=== PATIENT | female | born 1975 | race Caucasian/White ===

== ENCOUNTER 2021-01-07 00:03 | Observation (INO) | payer OTHER, SELFPAY ==
[2021-01-07] VITALS (21 sets, daily range): BP systolic 104–137; BP diastolic 56–86; PULSE 85–109; RESP 12–20; TEMP 36.6–37.7; O2SAT 93–97; BMI 50.1
--- NOTE | 2021-01-07 | PATH_ITS ---
[facility] Accession Number: [id number] . 01 Material submitted: . appendix - APPENDIX . 02 Diagnosis: Appendix, Appendectomy: Acute appendicitis with serositis. No evidence of neoplasm. MRV 01/09/2021 1202 Local . 02 Electronically signed: . Zack Bolanos MD, PhD, Pathologist NPI- [id number] . 01 Gross description: . The specimen is received in formalin, labeled appendix and consists of a 4.0 cm in length by 1.0 cm in diameter vermiform appendix with attached cary-yellow lobulated mesoappendix measuring 4.8 x 1.2 x 1.0 cm. The serosa is cary-pink and dull with fibrinous adhesions and adherent purulent exudate. Sectioning reveals a cary-pink mucosa and a lumen measuring 0.6 cm in diameter, which contains brown fecal material. Manager Pet sections are submitted, to include the en face margin (blue), central cross-sections and bisected tips, in cassette A1. ([id number]) /MRV 01/08/2021 1249 Local . 02 Pathologist provided ICD-10: K35.80 . 02 CPT . 287492 Performed at: 01 [facility] [address], [place], [place] [id number] MD Lio Munoz MD Phone: [phone] Performed at: 02 [facility] [address] [place], [place] [id number] MD Alana Kendall MD Phone: [phone]
[2021-01-07 00:58] LABS: Alanine Aminotransferase 28 IU/L (<35); Albumin 4.2 g/dL (3.5-5.0); Albumin Globulin Ratio 1.6 (1.0-2.8); Alkaline Phosphatase 64 U/L (38-126); Aspartate Aminotransferase 21 IU/L (14-36); Bilirubin Total 0.5 mg/dL (0.2-1.3); Blood Urea Nitrogen 9 mg/dL (7-17); Calcium 9.1 mg/dL (8.4-10.2); Carbon Dioxide 24 mmol/L (22-32); Chloride 101 mmol/L (98-107); Estimated Glomerular Filt Rate > 60.0 mL/min (>60); Globulin 2.7 g/dL (1.7-4.1); Glucose 172 mg/dL (70-100); HEMOLYSIS < 15 (0-50); Lipase 39 U/L (23-300); Potassium 4.4 mmol/L (3.4-5.1); Sodium 131 mmol/L (137-145); Total Protein 6.9 g/dL (6.3-8.2)
[2021-01-07 01:05] LABS: Add Manual Diff / Slide Review NO; Basophils Absolute Auto 100 /uL (0-100); Basophils Percent Auto 0.3 % (0-2); Eosinophils Absolute Auto 100 /uL (0-450); Eosinophils Percent Auto 0.5 % (2-4); Hematocrit 40.1 % (36-46); Hemoglobin 13.4 g/dL (12.0-16.0); Lymphocytes Absolute Auto 600 /uL (1100-4500); Lymphocytes Percent Auto 3.3 % (25-40); Mean Corpuscular HGB Conc 33.3 % (30-36); Mean Corpuscular Hemoglobin 29.2 PG (26-34); Mean Corpuscular Volume 87.7 fL (80-100); Monocytes Absolute Auto 1000 /uL (0-900); Monocytes Percent Auto 5.3 % (3-14); Neutrophils Absolute Auto 16600 /uL (1500-7000); Neutrophils Percent Auto 90.6 % (50-75); Platelet Count 182 X10^3/uL (150-400); Red Blood Cell Count 4.58 X10^6/uL (4.0-5.2); Red Cell Distribution Width 13.3 % (11.6-14.8); White Blood Cell Count 18.4 X10^3/uL (4.5-11.0)
[2021-01-07 01:25] LABS: COVID19 -Nasal RAPID Negative (Negative)
--- NOTE | 2021-01-07 01:30 | DI.CT.S_ITS ---
PROCEDURE: CT ABDOMEN PELVIS W CON INDICATIONS: right lower quadrant pain TECHNIQUE: After the administration of intravenous contrast, axial sections acquired from the lung bases to the pubic symphysis. Coronal and sagittal reformats were performed. For radiation dose reduction, the following was used: automated exposure control, adjustment of mA and/or kV according to patient size. COMPARISON: None. FINDINGS: Image quality: Excellent. Lung bases: Unremarkable. Heart: No significant findings. ABDOMEN: Liver: Diffuse hepatic steatosis. No masses. Gallbladder: Unremarkable. Biliary ducts: Unremarkable. Pancreas: Unremarkable. Spleen: Unremarkable. Adrenal Glands: Unremarkable. Kidneys and Ureters: Unremarkable. Stomach and Bowel: The appendix is dilated and fluid filled with a o'clock of base of the appendix were present cecum. There is mild inflammatory stranding in the adjacent fat. Findings are consistent with acute appendicitis. Bowel is otherwise unremarkable. Appendix measures up to 1.4 cm in diameter. Peritoneum: No abnormal intraperitoneal fluid. No free air. Ventral Wall: No hernias. Abdominal Nodes: No retroperitoneal or mesenteric adenopathy by size criteria. Vessels: Aorta and inferior vena cava are normal in size. PELVIS: Pelvic Organs: Unremarkable. Bladder: Unremarkable. Pelvic Nodes: No enlarged lymph nodes. Miscellaneous: No hernias are seen. Bones: Unremarkable. IMPRESSION: 1. Acute nonruptured appendicitis. Comment: Final report is concordant with preliminary interpretation provided by [facility]. Dictated by: Luis Daniel Kramer M.D. on 01/07/2021 at 7:55 Approved by: Luis Daniel Kramer M.D. on 01/07/2021 at 8:00
--- NOTE | 2021-01-07 01:34 | ED.ABDPAIN ---
HPI - Abdominal Pain General Chief Complaint: Abdominal Pain Stated Complaint: diarrhea, swollen stomach/hot lots of pain Time Seen by Provider: 01/07/21 01:22 Source: patient and family Mode of arrival: Ambulatory Limitations: no limitations History of Present Illness HPI narrative: With . Onset 10:00 a.m. yesterday with right lower quadrant pain with nausea diarrhea abdominal pain and fever. No urinary complaints. Radiates to the back. Still has her appendix. Still has her gallbladder. No chest pain. No recent cough cold congestion. Related Data Home Medications Medication Instructions Recorded Confirmed levothyroxine 112 mcg capsule 112 mcg PO DAILY 11/16/17 01/07/21 Previous Rx's Medication Instructions Recorded ketorolac 10 mg tablet 10 mg PO QID PRN #10 tab 01/08/21 Allergies Allergy/AdvReac Type Severity Reaction Status Date / Time morphine Allergy Mild ITCHING Verified 01/07/21 10:10 penicillin G Allergy Mild Hives Verified 01/07/21 10:10 oxycodone AdvReac Mild INTOLERANT Verified 01/07/21 10:10 TO PERCOCET Review of Systems Review of Systems Narrative: GENERAL: Complains chills, fatigue, malaise, fever, sweats. HEENT: Denies sinus pain, ear pain, sore throat RESPIRATORY: Denies dyspnea, cough CARDIOVASCULAR: Denies chest pain, palpitations GASTROINTESTINAL: Complain nausea, denies vomiting, complaint abdominal pain : Denies dysuria, frequency, hematuria MUSCULOSKELETAL: denies muscle or bony pain SKIN: Denies rash, skin lesions NEUROLOGIC: Denies weakness, numbness Patient History Medical History Hypothyroidism Surgical History History of third molar tooth extraction Status post delivery Social History household members: spouse, family and children Smoking Status: Never smoker alcohol intake: never Smoking Status: Never smoker Substance Use Type: does not use Exam Narrative Exam Narrative: GENERAL: in no distress, not toxic not dyspneic HEAD: Normocephalic. EYES: Pupils equal round No scleral icterus. No injection no discharge ENT: Mucous membranes moist. NECK: Trachea midline. CARDIOVASCULAR: Regular rate and rhythm without murmurs RESPIRATORY: Clear to auscultation. Breath sounds equal bilaterally. No wheezes, rales, or rhonchi. GASTROINTESTINAL: Abdomen soft, tender to touch diffusely lower quadrant of the abdomen, mild right lower back tenderness EXTREMITIES: No gross deformities. BACK: No flank tenderness. NEURO: AOx4. Slow steady gait in hallway from bathroom back to her room. SKIN: Warm and dry PSYCH: Not anxious, is cooperative Initial Vital Signs Initial Vital Signs: Vital Signs Temperature 98.4 F 01/07/21 00:26 Pulse Rate 109 H 01/07/21 00:26 Respiratory Rate 20 01/07/21 00:26 Blood Pressure 137/86 01/07/21 00:26 Pulse Oximetry 96 01/07/21 00:26 Course Course Course Narrative: No new issues during course of stay Orders Ordered: Discontinued Medications Acetaminophen (Acetaminophen 325 Mg Tablet) 975 mg PO NOW ONE Stop: 01/07/21 01:31 Last Admin: 01/07/21 01:46 Dose: 975 mg Documented by: HERSON Acetaminophen (Acetaminophen 325 Mg Tablet) 650 mg PO Q6HR PRN PRN Reason: Fever/Mild Pain (1-3) Last Admin: 01/07/21 18:28 Dose: 650 mg Documented by: Admin: 01/07/21 07:23 Dose: 650 mg Documented by: PRESLEY Bupivacaine HCl (Bupivacaine 0.25% (Pf) Vial) 30 ml INJ NOW ONE Stop: 01/07/21 16:58 Last Admin: 01/07/21 16:57 Dose: 30 ml Documented by: TAMMY Fentanyl (Fentanyl 100 Mcg/2 Ml Inj) 0 mcg IV Q5MIN PRN PRN Reason: Pain, Severe (7-10) Gabapentin (Gabapentin 300 Mg Capsule) 300 mg PO BID TEETEE Last Admin: 01/08/21 09:38 Dose: 300 mg Documented by: Admin: 01/08/21 08:50 Dose: Not Given Documented by: Admin: 01/07/21 21:17 Dose: 300 mg Documented by: DUSTY Hydromorphone HCl (Hydromorphone 2 Mg Inj) 0 mg IV Q5MIN PRN PRN Reason: Pain, Mild (1-3) Hydromorphone HCl (Hydromorphone 2 Mg Tablet) 2 mg PO Q4HR PRN PRN Reason: Pain, Severe (7-10) Sodium Chloride (Normal Saline 0.9%) 1,000 mls @ 1,000 mls/hr IV BOLUS ONE Stop: 01/07/21 02:29 Last Infusion: 01/07/21 02:52 Dose: 0 mls/hr Documented by: Admin: 01/07/21 01:47 Dose: 1,000 mls/hr Documented by: HERSON Metronidazole (Flagyl) 500 mg in 100 mls @ 100 mls/hr IV NOW ONE Stop: 01/07/21 03:23 Last Infusion: 01/07/21 04:30 Dose: 0 mls/hr Documented by: Admin: 01/07/21 03:26 Dose: 100 mls/hr Documented by: HERSON Ceftriaxone Sodium 2,000 mg/ (Sodium Chloride) 100 mls @ 200 mls/hr IV NOW ONE Stop: 01/07/21 02:25 Last Infusion: 01/07/21 03:26 Dose: 0 mls/hr Documented by: Admin: 01/07/21 02:52 Dose: 200 mls/hr Documented by: ELYSE Lactated Ringer's (Lactated Ringers) 1,000 mls @ 150 mls/hr IV CONT TEETEE Last Infusion: 01/07/21 22:43 Dose: 42 mls/hr Documented by: Infusion: 01/07/21 11:55 Dose: 150 mls/hr Documented by: Admin: 01/07/21 10:27 Dose: 100 mls/hr Documented by: Infusion: 01/07/21 07:50 Dose: 0 mls/hr Documented by: Admin: 01/07/21 04:29 Dose: 100 mls/hr Documented by: ELYSE Lactated Ringer's (Lactated Ringers) 1,000 mls @ 42 mls/hr IV CONT TEETEE Last Admin: 01/07/21 10:35 Dose: Not Given Documented by: RALF Lactated Ringer's (Lactated Ringers) 1,000 mls @ 42 mls/hr IV CONT TEETEE Metronidazole (Flagyl) 500 mg in 100 mls @ 100 mls/hr IV NOW ONE Stop: 01/07/21 12:29 Last Infusion: 01/07/21 15:20 Dose: 0 mls/hr Documented by: Admin: 01/07/21 12:03 Dose: 100 mls/hr Documented by: RALF Metronidazole (Flagyl) 500 mg in 100 mls @ 100 mls/hr IV INTRA-OP ONE Stop: 01/07/21 18:59 Last Infusion: 01/07/21 16:49 Dose: 0 mls/hr Documented by: Admin: 01/07/21 16:44 Dose: 100 mls/hr Documented by: KEI Cefotetan Disodium 2 gm/ (Sodium Chloride) 100 mls @ 200 mls/hr IV INTRA-OP ONE Stop: 01/07/21 18:29 Last Infusion: 01/07/21 16:58 Dose: 0 mls/hr Documented by: Admin: 01/07/21 16:49 Dose: 200 mls/hr Documented by: KEI Lactated Ringer's (Lactated Ringers) 1,000 mls @ 42 mls/hr IV CONT TEETEE Last Infusion: 01/08/21 07:01 Dose: 0 mls/hr Documented by: Admin: 01/08/21 03:49 Dose: 42 mls/hr Documented by: Infusion: 01/07/21 18:52 Dose: 0 mls/hr Documented by: Admin: 01/07/21 15:56 Dose: 42 mls/hr Documented by: QUINN Lactated Ringer's (Lactated Ringers) 1,000 mls @ 120 mls/hr IV CONT TEETEE Last Admin: 01/07/21 21:07 Dose: Not Given Documented by: DUSTY Ketorolac Tromethamine (Ketorolac 30 Mg/Ml Vial) 15 mg IV NOW ONE Stop: 01/07/21 01:35 Last Admin: 01/07/21 01:46 Dose: 15 mg Documented by: HERSON Ketorolac Tromethamine (Ketorolac 30 Mg/Ml Vial) 30 mg IV NOW ONE Stop: 01/07/21 07:34 Last Admin: 01/07/21 07:43 Dose: 30 mg Documented by: PRESLEY Ketorolac Tromethamine (Ketorolac 30 Mg/Ml Vial) 30 mg IV NOW ONE Stop: 01/07/21 14:31 Last Admin: 01/07/21 14:34 Dose: 30 mg Documented by: RALF Ketorolac Tromethamine (Ketorolac 10 Mg Tablet) 10 mg PO NOW ONE Stop: 01/08/21 10:18 Last Admin: 01/08/21 10:42 Dose: 10 mg Documented by: RALF Levothyroxine Sodium (Levothyroxine 112 Mcg Tablet) 112 mcg PO 0600 TEETEE Last Admin: 01/08/21 06:21 Dose: 112 mcg Documented by: OLENA Meperidine HCl (Meperidine 50 Mg/Ml Inj) 12.5 mg IV PACUNOW PRN PRN Reason: Mild pain or shivering Naloxone HCl (Naloxone 0.4 Mg/Ml Vial) 0.2 mg IV Q2MIN PRN PRN Reason: Opiate Reversal Ondansetron HCl (Ondansetron 4 Mg/2 Ml Inj) 4 mg IV NOW ONE Stop: 01/07/21 01:31 Last Admin: 01/07/21 01:46 Dose: 4 mg Documented by: HERSON Ondansetron HCl (Ondansetron 4 Mg/2 Ml Inj) 4 mg IV Q4HR PRN PRN Reason: Nausea And Vomiting Last Admin: 01/07/21 13:50 Dose: 4 mg Documented by: ASRA Ondansetron HCl (Ondansetron 4 Mg/2 Ml Inj) 4 mg IV NOW PRN PRN Reason: Nausea And Vomiting Last Admin: 01/07/21 18:12 Dose: 4 mg Documented by: HUE Reevaluation(s) Reevaluation #1: Reviewed results with patient and and agree for admission and surgery Time: 02:29 Consultations Consultation #1: s/w dr escobedo, surgeon, he will admit patient, start lactated Ringer's at 150 mL/hour. He will see patient here in in the department this morning Time: 02:42 Vital Signs Vital signs: Vital Signs - 8 hr 01/07/21 00:26 Temperature 98.4 F Pulse Rate 109 H Respiratory Rate 20 Blood Pressure 137/86 Pulse Oximetry 96 MDM - Abdominal Pain Differential Diagnosis Differential diagnosis: Likely abdominal pain, acute appendicitis, calculus of kidney and diverticulitis Lab Data Result diagrams: 01/08/21 06:49 01/07/21 00:40 Labs: Lab Results 01/07/21 01/07/21 01/07/21 Range/Units 00:40 00:40 01:03 WBC 18.4 H (4.5-11.0) X10^3/uL RBC 4.58 (4.0-5.2) X10^6/uL Hgb 13.4 (12.0-16.0) g/dL Hct 40.1 (36-46) % MCV 87.7 (80-100) fL MCH 29.2 (26-34) PG MCHC 33.3 (30-36) % RDW 13.3 (11.6-14.8) % Plt Count 182 (150-400) X10^3/uL Neut % (Auto) 90.6 H (50-75) % Lymph % (Auto) 3.3 L (25-40) % [place] % (Auto) 5.3 (3-14) % Eos % (Auto) 0.5 L (2-4) % Baso % (Auto) 0.3 (0-2) % Neut # (Auto) 84619 H (1100-3402) /uL Lymph # (Auto) 600 L (7257-7280) /uL [place] # (Auto) 1000 H (0-900) /uL Eos # (Auto) 100 (0-450) /uL Baso # (Auto) 100 (0-100) /uL Sodium 131 L (137-145) mmol/L Potassium 4.4 (3.4-5.1) mmol/L Chloride 101 (98-107) mmol/L Carbon Dioxide 24 (22-32) mmol/L BUN 9 (7-17) mg/dL Creatinine 0.53 (0.52-1.04) mg/dL Estimated GFR > 60.0 (>60) mL/min BUN/Creatinine Ratio 17.0 (6-22) Glucose 172 H (70-100) mg/dL Calcium 9.1 (8.4-10.2) mg/dL Total Bilirubin 0.5 (0.2-1.3) mg/dL AST 21 (14-36) IU/L ALT 28 (<35) IU/L Alkaline Phosphatase 64 (38-126) U/L Total Protein 6.9 (6.3-8.2) g/dL Albumin 4.2 (3.5-5.0) g/dL Globulin 2.7 (1.7-4.1) g/dL Albumin/Globulin Ratio 1.6 (1.0-2.8) Lipase 39 (23-300) U/L SARS-CoV-2 (PCR) Negative (Negative) Point of care testing: Point of Care Testing Test Results Negative Urine Dip Bedside Urine Glucose Negative Bedside Urine Bilirubin - Negative Bedside Urine Ketone - Negative Urine Specific [place] 1.015 Bedside Urine Occult Blood - Negative Bedside Urine pH 6.0 Bedside Urine Protein - Negative Bedside Urine Urobilinogen - Negative Bedside Urine Nitrite - Negative Bedside Urine Leukocytes - Negative Esterase Imaging Data CT scan - abdomen/pelvis: Radiologist's Impression: Read by overnight radiologist acute appendicitis with appendix dilated 1.3 cm with a 1.5 cm appendix with proximal small appendix ECG Data Interpretation: Sinus tachycardia rate [address] elevation or depression MDM Narrative Medical decision making narrative: Appropriate for admission. Patient has allergies to penicillin but only some of them. No anaphylaxis or airway compromise with any of them. Just gets lymph node swelling. No rash. Discharge Plan Departure Patient Disposition: Admitted as Observation Clinical Impression: Acute appendicitis Qualifiers: Acute appendicitis type: unspecified acute appendicitis type Qualified Code(s): K35.80 - Unspecified acute appendicitis Admit Date/Time: 01/07/21 02:40 Admit Provider: Williams Escobedo
[2021-01-07] MEDS: ACETAMINOPHEN 325 MG TABLET 975 MG PO (01:46)
[2021-01-07] MEDS: ONDANSETRON 4 MG/2 ML INJ IV ×3 (01:46→18:12)
[2021-01-07] MEDS: KETOROLAC 30 MG/ML VIAL 15 MG IV (01:46)
[2021-01-07] MEDS: SODIUM CHLORIDE 0.9% 1,000 ML 1000 ML IV (01:47)
[2021-01-07] MEDS: cefTRIAXone 2,000 MG in SODIUM CHLORIDE 0.9% 100 ML 200 ML IV (02:52)
[2021-01-07] MEDS: metroNIDAZOLE 500 MG/100 ML PIGGYBACK 100 MG IV ×3 (03:26→16:44)
[2021-01-07 04:16] LABS: COVID19 - ADMIT (NP swab/PCR) Negative (Negative)
[2021-01-07] MEDS: LACTATED RINGERS 1,000 ML 100 ML IV ×2 (04:29→10:27)
[2021-01-07] MEDS: ACETAMINOPHEN 325 MG TABLET 650 MG PO ×2 (07:23→18:28)
[2021-01-07] MEDS: KETOROLAC 30 MG/ML VIAL IV ×2 (07:43→14:34)
--- NOTE | 2021-01-07 08:00 | PM.HP.1 ---
History of Present Illness History of Present Illness Date Patient Seen: 01/07/21 Time Patient Seen: 08:00 Chief complaint: diarrhea, swollen stomach/hot lots of pain Narrative: The patient is a woman with a 2 day history of pain. The pain began in her back and right flank in the kidney area but has progressed into the right lower quadrant. She has had a lot of back pain and psoas initially thought it was due to that but this new pain in her abdomen is nothing she has had before. It is intensified during the day and she came to the emergency room. She has been nauseated but has not vomited. No black or bloody bowel movements. The pain is constant. Patient History Medical History Hypothyroidism Surgical History History of third molar tooth extraction Status post delivery Family & Social History Safety & Behavioral: Feels Safe in Current Yes Environment Been Physically Hurt or No Threatened By a Person Tobacco & Substance use: Smoking Status Never smoker Substance Use Type does not use Meds Home Medications and Allergies Home Medications Medication Instructions Recorded Confirmed Type levothyroxine 112 mcg capsule 112 mcg PO DAILY 11/16/17 11/16/17 History Allergies Allergy/AdvReac Type Severity Reaction Status Date / Time morphine Allergy Mild Unverified 09/21/17 11:57 penicillin G Allergy Mild Unverified 09/21/17 11:57 oxycodone AdvReac Mild INTOLERANT Unverified 09/21/17 11:57 TO PERCOCET Review of Systems Review of Systems Narrative: Patient denies any visual difficulties double vision pain arise earaches sore throats or trouble swallowing. No tooth aches. No cough cold or asthma. No chest pain or heart problems. No murmurs. No history of ulcers. No prior colonoscopy. No dysuria or hematuria. No seizures or blackouts. She is hypothyroid but not diabetic. No unusual bruising or bleeding. She has not been vaccinated against COVID. She is waiting for more data. Exam Vital Signs (past 8 hours): - 01/07/21 00:26 01/07/21 07:30 01/07/21 07:31 Temperature 98.4 F 98.8 F Pulse Rate 109 H 94 H 88 Respiratory Rate 20 18 Blood Pressure 137/86 107/58 L Pulse Oximetry 96 97 97 Oxygen Delivery Method Room Air Narrative Exam Narrative: Cooperative no apparent distress. Eyes are nonicteric. Lungs are clear to auscultation no rales or rhonchi. Heart regular rate and rhythm without murmur gallop. Percuss is equally bilaterally. No bruit in the neck. Abdomen is protuberant soft. There is no guarding. Greatest tenderness is in the right lower quadrant. No visible hernias. No masses appreciated. Patient is alert and oriented x3. Speech rate and content are appropriate. Affect is appropriate. Objective Labs Result Diagrams: 01/07/21 00:40 01/07/21 00:40 Labs: Laboratory Results - last 24 hr 01/07/21 01/07/21 01/07/21 00:40 00:40 01:03 WBC 18.4 H RBC 4.58 Hgb 13.4 Hct 40.1 MCV 87.7 MCH 29.2 MCHC 33.3 RDW 13.3 Plt Count 182 Neut % (Auto) 90.6 H Lymph % (Auto) 3.3 L [place] % (Auto) 5.3 Eos % (Auto) 0.5 L Baso % (Auto) 0.3 Neut # (Auto) 29230 H Lymph # (Auto) 600 L [place] # (Auto) 1000 H Eos # (Auto) 100 Baso # (Auto) 100 Sodium 131 L Potassium 4.4 Chloride 101 Carbon Dioxide 24 BUN 9 Creatinine 0.53 Estimated GFR > 60.0 BUN/Creatinine Ratio 17.0 Glucose 172 H Calcium 9.1 Total Bilirubin 0.5 AST 21 ALT 28 Alkaline Phosphatase 64 Total Protein 6.9 Albumin 4.2 Globulin 2.7 Albumin/Globulin Ratio 1.6 Lipase 39 SARS-CoV-2 (PCR) Negative 01/07/21 03:00 WBC RBC Hgb Hct MCV MCH MCHC RDW Plt Count Neut % (Auto) Lymph % (Auto) [place] % (Auto) Eos % (Auto) Baso % (Auto) Neut # (Auto) Lymph # (Auto) [place] # (Auto) Eos # (Auto) Baso # (Auto) Sodium Potassium Chloride Carbon Dioxide BUN Creatinine Estimated GFR BUN/Creatinine Ratio Glucose Calcium Total Bilirubin AST ALT Alkaline Phosphatase Total Protein Albumin Globulin Albumin/Globulin Ratio Lipase SARS-CoV-2 (PCR) Negative Assessment & Plan Assessment and plan (1) Acute appendicitis: Qualifiers: Acute appendicitis type: unspecified acute appendicitis type Qualified Code(s): K35.80 - Unspecified acute appendicitis Status: Acute (2) Morbid obesity: Status: Acute Assessment & Plan narrative: Patient with an appendicolith in the base of her appendix. There is distal swelling and inflammation surrounding the appendix. I have discussed appendectomy with the patient. Will attempt this laparoscopically with the possibility of an open operation was discussed. Risks of bleeding infection hernia alternative diagnoses and additional operation was all discussed with her. She appears to understand wishes to proceed. Restrictions after the operation also discussed. Her weight will make this operation far more challenging as well as immobilization postoperatively.
--- NOTE | 2021-01-07 11:30 | PM.PREOP ---
Pre-operative Note COVID-19 COVID-19 status: Negative Result date/Date tested (Pos, Neg/Pending): 01/07/21 Interval Note History & Physical reviewed/Exam performed by Physician: Yes Changes to H&P: No
--- NOTE | 2021-01-07 15:40 | PC.NURSE ---
Pt up to br to void, IV saline locked, VS taken, Pt has given her jewelry to Gwen. Pt to OR via bed with chart by [employer]
[2021-01-07] MEDS: LACTATED RINGERS 1,000 ML 42 ML IV (15:56)
[2021-01-07] MEDS: CEFOTETAN 2 GM in SODIUM CHLORIDE 0.9% 100 ML 200 ML IV (16:49)
[2021-01-07] MEDS: BUPIVACAINE 0.25% (PF) VIAL 30 ML INJ (16:57)
--- NOTE | 2021-01-07 17:06 | SUR.OPER ---
Supine on padded OR bed, head on pillow, arms secured on padded arm boards at <90 degrees abduction, legs uncrossed, safety belt at thigh, tape over blanket over lower legs.
--- NOTE | 2021-01-07 17:25 | SUR.OPER ---
GLASSES TO PACU WITH PATIENT IN LABELED BAG.
--- NOTE | 2021-01-07 17:51 | P.OP_ITS ---
Operative Date/Time/Diagnoses Date of procedure: 01/07/21 Time of procedure: 17:51 Pre-op diagnosis: acute appendicitis Post-op diagnosis: same Procedure & Clinicians Procedure: laparoscopic appendectomy Same procedure as scheduled: Yes Indications: abdominal pain with an abnormal CT scan and tenderness in right lower quadrant Surgeon: Williams Kumari Anesthesia Type: General Operative Notes Findings: acutely inflamed appendix. Healthy base. Closure Type: primary Specimen(s): other ( Appendix) Prosthetic devices, grafts, tissues, transplants, or devices: none Estimated Blood Loss (mL): 5 Blood products transfused: none Procedure in detail: The patient was placed supine on the operating room table and underwent general endotracheal anesthesia. The patient was prepped and draped in the usual fashion. Local anesthetic was infiltrated and an incision made Above the umbilicus. It was carried down under direct vision through the fascia into the peritoneal cavity. Stay sutures of 0 Vicryl were placed in the fascia. A 12 mm port was inserted and 2 additional ports were placed. These were 5 mm ports. One was placed between the umbilicus and pubis and 1 in the left lower quadrant. The cecum and terminal ileum were identified. the appendix was readily seen. It was markedly inflamed in the mesoappendix was thickened. The base however was quite healthy in appearance. It was not edematous. The mesoappendix was divided using cautery for and a LigaSure device. The base of the appendix was cleared. An 0 PDS loop was placed at the base of the appendix and cinched down. The appendix was occluded with a clamp distal to this and the appendix transected between the tie and the clamp Using the LigaSure device. The appendix was immediately placed in a bag. there was no spillage.The right gutter and pelvis were copiously irrigated and suctioned free of fluid. the omentum was fused to the abdominal wall at the prior C- section site. The ports were all removed. The stay sutures at the umbilicus were tied. An additional 2 0 PDS was placed between the knees. The wounds were all irrigated and 4 0 Vicryl subcuticular interrupted sutures were used to close the skin.The patient tolerated the procedure well. Complications: none Post-operative Condition: stable Disposition: PACU
--- NOTE | 2021-01-07 19:01 | SUR.PHASEI ---
184 Patient transferred to [facility] by Evelyn PALMER and Anni HUNTER. Pt awake, alert on room air. Nausea eased after estrella nichol and saltines. Pain 3/10. Dressing reinforced on lower end end with 4x4 and gauze covering surgical dressing which has a small amt of blood accumulated in belly button. Abdomen soft, no new drainage from abd palpation.
--- NOTE | 2021-01-07 19:34 | PC.NURSE ---
Patient back from PACU at 1855. No pain or nausea. is at the bedside and is very helpful to the patient. Patient up to void after surgery with SBA. Call light within reach, bed low and locked. VSS.
[2021-01-07] MEDS: GABAPENTIN 300 MG CAPSULE PO (21:17)
[2021-01-08] MEDS: LACTATED RINGERS 1,000 ML 42 ML IV (03:49)
[2021-01-08 05:43] VITALS: BP 112/61; PULSE 109; RESP 17; TEMP 36.2; O2SAT 98
[2021-01-08] MEDS: LEVOTHYROXINE 112 MCG TABLET PO (06:21)
[2021-01-08 08:00] VITALS: BP 114/69; PULSE 87; RESP 18; TEMP 36.6; O2SAT 97
[2021-01-08 08:34] LABS: Add Manual Diff / Slide Review NO; Basophils Absolute Auto 0 /uL (0-100); Basophils Percent Auto 0.1 % (0-2); Eosinophils Absolute Auto 0 /uL (0-450); Hematocrit 35.9 % (36-46); Hemoglobin 11.9 g/dL (12.0-16.0); Lymphocytes Absolute Auto 600 /uL (1100-4500); Lymphocytes Percent Auto 4.8 % (25-40); Mean Corpuscular Hemoglobin 29.6 PG (26-34); Mean Corpuscular Volume 89.5 fL (80-100); Monocytes Absolute Auto 400 /uL (0-900); Monocytes Percent Auto 3.1 % (3-14); Neutrophils Absolute Auto 11100 /uL (1500-7000); Platelet Count 175 X10^3/uL (150-400); Red Blood Cell Count 4.01 X10^6/uL (4.0-5.2); Red Cell Distribution Width 13.6 % (11.6-14.8); White Blood Cell Count 12.1 X10^3/uL (4.5-11.0)
--- NOTE | 2021-01-08 08:44 | P.DS_ITS ---
History of Present Illness History of Present Illness Chief complaint: diarrhea, swollen stomach/hot lots of pain Narrative: The patient is a woman with a 2 day history of pain. The pain began in her back and right flank in the kidney area but has progressed into the right lower quadrant. She has had a lot of back pain and psoas initially thought it was due to that but this new pain in her abdomen is nothing she has had before. It is intensified during the day and she came to the emergency room. She has b een nauseated but has not vomited. No black or bloody bowel movements. The pain is constant. Discharge Providers Provider Date of admission: 01/07/21 02:40 Discharge Date: 01/08/21 Primary care physician: Kacy Hou MD Consults: 01/07/21 19:00 Consult to Discharge Planning Routine Comment: Discharge provider: Williams Kumari MD Summary Hospital Course Discharge Diagnosis: Acute appendicitis. Morbid obesity with a BMI of 50. Hospital Course: The patient was taken to the operating room and underwent a laparoscopic appendectomy. Her pain was completely relieved postoperatively. She was discharged the following morning to follow up in the office. She was tolerating a diet, ambulating and doing well. Status at Discharge Cognitive/behavioral status at discharge: at baseline, oriented Functional status at discharge: independent ambulation Overall status at discharge: patient is back to baseline Exam Vital Signs (past 8 hours): - 01/08/21 05:43 Temperature 97.1 F L Pulse Rate 109 H Respiratory Rate 17 Blood Pressure 112/61 Pulse Oximetry 98 Oxygen Delivery Method Room Air Oxygen Flow Rate 0 Narrative Exam Narrative: Dressings are dry and intact. Moves without difficulty. Objective Labs Result Diagrams: 01/07/21 00:40 01/07/21 00:40 [facility] Medical History Hypothyroidism Surgical History History of third molar tooth extraction Status post delivery Social History household members: spouse, family and children Smoking Status: Never smoker alcohol intake: never Discharge Assessment & Plan Assessment and Plan Assessment: Doing well Plan of Treatment: Follow-up in the office Discharge Plan Discharge Plan Patient Disposition: Home Provider Discharge Comment: You had acute appendicitis. It did not appear that it had perforated. You may use Tylenol or Motrin or both for pain Discharge orders & Medications Prescriptions: Continued levothyroxine 112 mcg capsule 112 mcg PO DAILY RF: 0 Follow up/Referrals: Kacy Hou MD [Primary Care Provider] - Williams Kumari MD [Physician] - 2 Weeks (Please call my office to make an appointment to see me in about 2 weeks. If you need to reach a doctor please call our office. If it is after hours listen to the message and it will instruct you how to reach the doctor on-call for our practice. Have a pen and paper ready to write the 1 800 number down.) Diet/Activity/Treatments Diet: Diet as Tolerated Activity: No lifting over 10 lb or straining for the next 4 weeks. You may walk. Skin/Wound/Dressing Care Report to your healthcare provider any signs of infection, such as:: chills, fever, night sweats, increased pain, unusual drainage and unusual redness Dressing: You may remove the clear dressing at your belly button and the 2 Band- Aids tomorrow and shower. Leave the tape under the Band-Aids and gauze fall off on its own. Only remove it if it irritate her skin. Discharge Data Primary Care Provider: Kacy Hou Attending Provider: Williams Kumari [facility] Deep Vein Thrombosis/Pulmonary Embolism Present on Admission: No
[2021-01-08] MEDS: GABAPENTIN 300 MG CAPSULE PO (09:38)
[2021-01-08] MEDS: KETOROLAC 10 MG TABLET PO (10:42)
--- NOTE | 2021-01-08 11:01 | PC.NURSE ---
Pt is dressed and ready for discharge home with Spouse. Went over d/c instructions with Pt and spouse-discussed d/c meds, time of last dose, reviewed stroke education, s/s of infection, and follow up .
== END 2021-01-08 11:02 | disposition home or self-care (01) ==
LOC: ED 02:31 → AC 02:41
PROVIDERS: Admitting Provider Specialist; Emergency Provider Emergency Medicine; PCP Obstetrics & Gynecology; Visit Provider Specialist
PROC: 0DTJ4ZZ Resection of Appendix, Percutaneous Endoscopic Approach (ICD-10-PCS; CPT 44970; principal; 2021-01-07 15:45)
DX: K35.80 Unspecified acute appendicitis (principal); E66.01 Morbid (severe) obesity due to excess calories; Z68.43 Body mass index [BMI] 50.0-59.9, adult; R04.0 Epistaxis; E03.9 Hypothyroidism, unspecified; Z20.822 Contact with and (suspected) exposure to COVID-19
CPT/HCPCS: 44970; 36415; 74177; 80053; 81003; 81025; 83690; 85025; 87635; 93005; 96361; 96365; 96366; 96367; 96375; 96376; 99219; 99284; C9803; G0378; J0330; J0696; J1100; J1885; J2405; J2704; J3010; Q9967